=== PATIENT | female | born 1990 | race Caucasian/White ===

== ENCOUNTER 2018-07-26 17:37 | Emergency (ER) | payer OTHER, MEDICAID ==
[~2018-07-26] VITALS: Ht 152.4 cm; Wt 39.0 kg
[~2018-07-26 17:37] MED LIST: BACTRIM 400-801 EACH PO; FLEXERIL PO; IBUPROFEN 400400 M1 PO; NAPROSYN250 MG PO; NORCO 5-325 TA1 EACH PO; ORTHO EVRA PAT1 EACH; ULTRAM 50MG TAB50 MG PO; VISTARIL 25 MG25 M1 OR; ZOFRAN4 MG PO
[2018-07-26] MEDS ORDERED: VALIUM5 MG PO (17:43)
[2018-07-26] MEDS ORDERED: ADDERALL 10 MG10 MG PO (17:43)
[2018-07-26] MEDS ORDERED: [UNRECOGNIZED DRUG - OTHER] (17:43)
[2018-07-26 18:22] LABS: ABSOLUTE EOSINOPHILS 0.1 thou/uL (0.0-0.7); ABSOLUTE LYMPHOCYTES 1.7 thou/uL (0.8-5.3); ABSOLUTE MONOCYTES 0.5 thou/uL (0.0-1.2); ABSOLUTE NEUTROPHILS 3.4 thou/uL (1.6-8.1); BASOPHILS 0.8 %; EOSINOPHILS 1.7 %; HEMATOCRIT 40.9 % (37.0-47.0); HEMOGLOBIN 13.7 gm/dL (12.0-15.0); LYMPHOCYTES 29.5 %; MCH 30.6 pg (26.0-34.0); MCHC 33.5 g/dL (28.0-37.0); MCV 91.2 fL (80.0-100.0); MONOCYTES 9.4 %; MPV 7.5 fl. (7.2-11.1); NUCLEATED RBCS 0 /100WBC; PLATELET COUNT* 239 thou/uL (150-400); POLYS 58.6 %; RBC 4.48 mil/uL (4.20-5.00); RDW-CV 12.9 % (10.5-14.5); WBC 5.8 thou/uL (4.0-11.0)
[2018-07-26 18:30] LABS: CREATININE 0.8 mg/dL (0.6-1.3); POTASSIUM 4.1 mmol/L (3.5-5.1)
[2018-07-26 18:35] LABS: ALBUMIN 4.3 g/dL (3.4-5.0); TOTAL BILIRUBIN 0.6 mg/dL (<0.1-1.0); TOTAL PROTEIN 7.7 g/dL (6.4-8.2)
[2018-07-26 18:38] LABS: ACETAMINOPHEN < 2 ug/mL (10-30); SALICYLATE < 2.8 mg/dL (2.8-20.0)
[2018-07-26 20:39] LABS: URINE BILIRUBIN NEGATIVE (Negative); URINE BLOOD NEGATIVE (Negative); URINE CLARITY CLEAR; URINE COLOR YELLOW; URINE GLUCOSE-RANDOM NEGATIVE (Negative); URINE KETONES TRACE (Negative); URINE LEUKOCYTES-REFLEX NEGATIVE (Negative); URINE NITRITE-REFLEX NEGATIVE (Negative); URINE PROTEIN NEGATIVE (Negative); URINE UROBILINOGEN 0.2 E.U./dl (0.2-1.0)
[2018-07-26 20:50] LABS: AMP/METHAMP POSITIVE (Negative); BARBITURATES Negative (Negative); BENZODIAZEPINES Negative (Negative); COCAINE Negative (Negative); METHADONE Negative (Negative); OPIATES Negative (Negative); PCP Negative (Negative); THC Negative (Negative)
[2018-07-26 21:05] VITALS: BP 100/48
--- NOTE | 2018-07-27 10:18 | EKG ---
[place] [address] ELECTROCARDIOGRAM REPORT Name: REJI CUENCA Room: [facility] Lei#: [id number] Admission: 07/26/18 Attend Phys: Discharge: 07/26/18 Date of : 89 Report #: [id number] THIS REPORT FOR: //name// [facility] ED Test Date: 2018-07-26 Test Time: 17:41:25 Pat Name: REJI CUENCA Department: Room: 9 Gender: F Personal Driver: Cat AGUAYO : 1990 Requested By: EMILY Order Number: [id number] Reading MD: Jake Hoyt Measurements Intervals [place] Rate: 58 P: 55 [place]: 121 QRS: 71 QRSD: 92 T: 49 QT: 425 QTc: 418 Interpretive Statements Sinus bradycardia No previous ECG available for comparison Electronically Signed On 07-27-2018 10:18:17 [employer] by Jake Hoyt [email or web address] <ELECTRONICALLY SIGNED> By: Jake Hoyt MD, [facility] 07/27/18 1018 1741 1741 Jake Hoyt MD, FACC /EPI
== END 2018-07-26 21:05 | disposition home or self-care (01) ==
LOC: M.ERS 17:37
PROVIDERS: Physician Assistant
DX: R11.2 Nausea with vomiting, unspecified (principal); R10.9 Unspecified abdominal pain; F41.9 Anxiety disorder, unspecified; F98.8 Other specified behavioral and emotional disorders with onset usually occurring in childhood and adolescence; Z79.899 Other long term (current) drug therapy